=== PATIENT | female | born 1995 | race Hispanic/Latino ===

== ENCOUNTER 2017-05-03 18:39 | Observation (INO) | payer SELFPAY ==
[2017-05-03 18:50] VITALS: BMI 24.7
[2017-05-03] MEDS ORDERED: Sodium Chloride 0.9% 1,000 ML IV ONE (19:47)
[2017-05-03] MEDS ORDERED: Dexamethasone 4 mg/1 ml IVP STA (19:48)
[2017-05-03 20:01] LABS: BASO % 0.2 % (0.0-2.0); EOS # 0.2 K/uL (0.0-0.7); EOS % 1.4 % (0.0-4.0); HEMOGLOBIN 12.5 g/dL (11.0-16.0); MEAN CELL VOLUME 89.3 fL (81.0-99.0); MEAN CORPUSCULAR HEMOGLOBIN 28.8 pg (27.0-31.0); MEAN CORPUSCULAR HGB CONC 32.3 g/dL (33.0-37.0); MEAN PLATELET VOLUME 9.5 fL (7.2-11.7); NEUT # 8.4 K/uL (1.8-7.0); NEUT % 72.4 % (50.0-75.0); RBC 4.33 Mil/uL (3.80-5.20); RED CELL DISTRIBUTION WIDTH 15.6 % (11.5-14.5); WHITE BLOOD COUNT 11.6 K/uL (4.8-10.8)
[2017-05-03] MEDS ORDERED: Sodium Chloride 0.9% 1,000 ML ONE ×2 (20:01→22:48)
[2017-05-03] MEDS ORDERED: Dexamethasone 4 mg/1 ml ONE (20:01)
[2017-05-03 20:11] LABS: ALBUMIN 4.1 g/dL (3.5-5.0)
[2017-05-03 20:13] LABS: GFR AFRICAN-AMERICAN > 60; GFR NON-AFRICAN AMERICAN > 60
[2017-05-03 20:14] LABS: ALB/GLOB RATIO 1.2 (1.0-2.1); ALT/SGPT 23 U/L (9-52); AST/SGOT 15 U/L (14-36); BLOOD UREA NITROGEN 10 mg/dL (7-17); CALCIUM 9.5 mg/dl (8.6-10.4)
--- NOTE | 2017-05-03 20:21 | C.PDOC ---
"History Of Present Illness 21 y/o female presents to ED with complaints of sore throat and swelling worse for 4 days. Patient states 2 weeks ago she had sore throat and took leftover antibiotics with improvement but pain returned 4 days ago. Patient also reports pain when swallowing but denies fever, chills, cough, chest pain or any other complaints at this time. Time Seen by Provider: 05/03/17 19:19 Chief Complaint (Nursing): ENT Problem History Per: Patient History/Exam Limitations: None Onset/Duration Of Symptoms: Days Current Symptoms Are (Timing): Still Present Quality (Mouth/Throat): Swelling Past Medical History Reviewed: Historical Data, Nursing Documentation, Vital Signs Vital Signs: Last Vital Signs Temp 97.8 F 05/04/17 00:05 Pulse 58 L 05/04/17 00:05 Resp 16 05/04/17 00:05 BP 106/62 05/04/17 00:05 Pulse Ox 98 05/03/17 21:43 - Medical History PMH: Anxiety, Asthma, Bipolar Disorder, Depression Family History: States: No Known Family Hx - Social History Hx Alcohol Use: Yes Hx Substance Use: No - Immunization History Hx Tetanus Toxoid Vaccination: No Hx Influenza Vaccination: No Hx Pneumococcal Vaccination: No Review Of Systems Except As Marked, All Systems Reviewed And Found Negative. Constitutional: Negative for: Fever, Chills ENT: Positive for: Throat Pain, Throat Swelling Cardiovascular: Negative for: Chest Pain Respiratory: Negative for: Cough Gastrointestinal: Negative for: Nausea, Vomiting, Diarrhea Skin: Negative for: Rash Physical Exam - Physical Exam Appears: Non-toxic, No Acute Distress Skin: Normal Color, Warm Head: Atraumatic, Normacephalic Eye(s): bilateral: Normal Inspection, EOMI Ear(s): Bilateral: Normal Nose: Normal Oral Mucosa: Moist, No Trismus Throat: No Drooling, Other (Left peritonsillar swelling) Neck: Normal ROM, Supple Lymphatic: Adenopathy Chest: Symmetrical Cardiovascular: Rhythm Regular, No Murmur Respiratory: Normal Breath Sounds, No Rales, No Rhonchi, No Wheezing Gastrointestinal/Abdominal: Soft, No Tenderness, No Guarding, No Rebound Neurological/Psych: Oriented x3, Normal Speech ED Course And Treatment - Laboratory Results Result Diagrams: 05/03/17 19:58 05/03/17 19:58 O2 Sat by Pulse Oximetry: 99 (RA) Pulse Ox Interpretation: Normal - CT Scan/US Neck Other Rad Studies (CT/US): Interpreted By Me, Read By Radiologist CT/US Interpretation: EXAM: CT Neck With Intravenous Contrast. CLINICAL HISTORY : 21 years old, female; Signs and symptoms; Abscess, tonsil; Additional info: Peritonsillar abscess? TECHNIQUE: Axial computed tomography images of the neck with intravenous contrast. This CT. exam was performed using one or more of the following dose reduction techniques: automated. exposure control, adjustment of the mA and/or kV according to patient size, and/or use of iterative. reconstruction technique. Coronal and sagittal reformatted images were created and reviewed. CONTRAST: 100 mL of visipaque 320 administered intravenously. COMPARISON: No relevant prior studies available. FINDINGS: Nasopharynx: Unremarkable. Oropharynx: The palatine tonsils and lingual tonsils are enlarged consistent with tonsillitis. 1.3 x 1.3. cm peritonsillar abscess on the left. Hypopharynx: Unremarkable. Larynx: Unremarkable. Normal epiglottis. Trachea: Unremarkable. Retropharyngeal space: Unremarkable. Submandibular/parotid glands: Unremarkable. Glands are normal in size. Thyroid : Unremarkable. No enlarged or calcified nodules. Bones/joints: No acute fracture. Soft tissues: Unremarkable. Vasculature: No acute findings. Lymph nodes: Prominent lymph nodes in the anterior cervical and submandibular chains, more. prominent on the left. Lung apices: Unremarkable as visualized. DELORIS SMITH | Preliminary Radiology Report. CARDIAC CATH TECH (QA) DISCREPANCY? If there is a discrepancy between the preliminary and final interpretation, please notify [facility] via [email or web address]. If you do not have access to our QA portal, call our QA team at [phone]. CONFIDENTIALITY STATEMENT. This report is intended only for the use of the referring physician, and only in accordance with law, If you received this in error, call [phone]. Page 2 of 2. IMPRESSION: 1. The palatine tonsils and lingual tonsils are enlarged consistent with tonsillitis. 1.3 x 1.3 cm. peritonsillar abscess on the left. 2. Prominent lymph nodes in the anterior cervical and submandibular chains, more prominent on the. left. These are likely reactive lymph nodes. Thank you for allowing us to participate in the care of your patient. Progress Note: Case discussed with Dr. Vazquez who instructs medical admission and he will consult. Case discussed with Dr Varner, agrees upon admission. Reevaluation Time: 20:24 Reassessment Condition: Improved Disposition - Disposition Disposition: HOSPITALIZED Disposition Time: 22:00 Condition: STABLE - Clinical Impression Clinical Impression: Peritonsillar abscess - Scribe Statement The provider has reviewed the documentation as recorded by the Ronaldibdeejay Badillo All medical record entries made by the Beatriz were at my direction and personally dictated by me. I have reviewed the chart and agree that the record accurately reflects my personal performance of the history, physical exam, medical decision making, and the department course for this patient. I have also personally directed, reviewed, and agree with the discharge instructions and disposition."
[2017-05-03] MEDS ORDERED: Iodixanol 320 MG/ML 100 ML BOTTLE IV ONE (20:46)
[2017-05-03] MEDS ORDERED: Benzocaine/Menthol (Cepacol) Lozenge MT PRN (22:17)
--- NOTE | 2017-05-03 22:18 | CP.PCM.HP ---
Addendum entered and electronically signed by Leonela Aguirre DO 05/04/17 00:20 : Clindamycin 600mg Q6H Original Note: <Leonela Aguirre - Last Filed: 05/03/17 23:39> History of Present Illness - History of Present Illness History of Present Illness: Medicine Note CC: sore throat HPI: 21F with PMHx of Asthma presents to the ED for sore throat. Patient reports she started having throat pain for the past 4 days. She has pain when she swallows and has been unable to eat certain food items. She admits to odynophagia, chills, nausea, and vomiting x1 episode. Denied fever, headache, chest pain, SOB, abdominal pain, c/d, or urinary symptoms. PMHx: Asthma PSHx: Tear duct surgery Meds: Denied All: NKDA SHx: smokes 1/2 ppd/ 10 years, socially drugs, denied any illicit drug use FHx: Unremarkable Present on Admission - Present on Admission Any Indicators Present on Admission: No Review of Systems - Constitutional Constitutional: Chills. absent: Fever - EENT Eyes: absent: Change in Vision Ears: absent: Tinnitus Nose/Mouth/Throat: Dry Mouth, Odynophagia, Sore Throat, Throat Swelling, Neck Mass. absent: Change in Voice, Hoarsness, Tongue Swelling, Neck Pain - Cardiovascular Cardiovascular: absent: Chest Pain, Chest Pain at Rest - Respiratory Respiratory: absent: Dyspnea on Exertion - Gastrointestinal Gastrointestinal: absent: Abdominal Pain - Genitourinary Genitourinary: absent: Dysuria, Hematuria, Pyuria - Musculoskeletal Musculoskeletal: absent: Back Pain - Integumentary Integumentary: absent: Wounds - Neurological Neurological: absent: Weakness - Endocrine Endocrine: absent: Fatigue - Hematologic/Lymphatic Hematologic: absent: Easy Bleeding, Easy Bruising Past Patient History - Infectious Disease Hx of Infectious Diseases: None - Past Social History Smoking Status: Heavy Smoker > 10 Cigarettes Daily - PULMONARY Hx Asthma: Yes - PSYCHIATRIC Hx Anxiety: Yes Hx Bipolar Disorder: Yes Hx Depression: Yes Hx Substance Use: No - SURGICAL HISTORY Hx Surgeries: Yes Hx Eye Surgery: Yes - ANESTHESIA Hx Anesthesia: Yes Hx Anesthesia Reactions: No Meds Allergies/Adverse Reactions: Allergies Allergy/AdvReac Type Severity Reaction Status Date / Time risperidone [From Risperdal] AdvReac Intermediate RASH Verified 05/03/17 18:51 Physical Exam - Constitutional Appears: No Acute Distress - Head Exam Head Exam: NORMAL INSPECTION, NORMOCEPHALIC - Eye Exam Eye Exam: EOMI, Normal appearance, PERRL - ENT Exam ENT Exam: Mucous Membranes Dry Additional comments: Left tonsil enlarged, erythematous, no pus noted, TTP on exam - Neck Exam Neck exam: Positive for: Normal Inspection, Tenderness. Negative for: Thyromegaly - Respiratory Exam Respiratory Exam: Clear to Auscultation Bilateral, NORMAL BREATHING PATTERN. absent: Accessory Muscle Use, Wheezes - Cardiovascular Exam Cardiovascular Exam: REGULAR RHYTHM - GI/Abdominal Exam GI & Abdominal Exam: Normal Bowel Sounds, Soft - Extremities Exam Extremities exam: Positive for: normal inspection, pedal pulses present. Negative for: pedal edema, tenderness - Back Exam Back exam: NORMAL INSPECTION - Neurological Exam Neurological exam: Alert, CN II-XII Intact, Oriented x3 - Psychiatric Exam Psychiatric exam: Normal Affect, Normal Mood - Skin Skin Exam: Dry, Intact, Normal Color, Warm Results - Vital Signs Recent Vital Signs: Last Vital Signs Temp 97.5 F L 05/03/17 21:43 Pulse 79 05/03/17 21:43 Resp 18 05/03/17 21:43 BP 112/69 05/03/17 21:43 Pulse Ox 98 05/03/17 21:43 - Labs Result Diagrams: 05/03/17 19:58 05/03/17 19:58 Labs: Laboratory Results - last 24 hr 05/03/17 05/03/17 05/03/17 19:58 19:58 20:08 WBC 11.6 H RBC 4.33 Hgb 12.5 Hct 38.7 MCV 89.3 MCH 28.8 MCHC 32.3 L RDW 15.6 H Plt Count 224 MPV 9.5 Neut % (Auto) 72.4 Lymph % (Auto) 17.0 L [place] % (Auto) 9.0 Eos % (Auto) 1.4 Baso % (Auto) 0.2 Neut # 8.4 H Lymph # 2.0 [place] # 1.0 H Eos # 0.2 Baso # 0.0 Sodium 141 Potassium 3.4 L Chloride 101 Carbon Dioxide 26 Anion Gap 17 BUN 10 Creatinine 0.6 L Est GFR ( Amer) > 60 Est GFR (Non-Af Amer) > 60 Random Glucose 100 Calcium 9.5 Total Bilirubin 0.9 AST 15 ALT 23 Alkaline Phosphatase 92 Total Protein 7.4 Albumin 4.1 Globulin 3.4 Albumin/Globulin Ratio 1.2 Grp A Beta Strep Ag Negative Assessment & Plan - Assessment and Plan (Free Text) Assessment: 21F with PMHx of Asthma presents to the ED for sore throat. Patient reports she started having throat pain for the past 4 days. Plan: Peritonsillar abscess * Afebrile, leukocytosis with left shift, vitals stable * Neck CT with IV contrast: The palatine tonsils and lingual tonsils are enlarged consistent with tonsillitis. 1.3 x 1.3 cm. peritonsillar abscess on the left. 2. Prominent lymph nodes in the anterior cervical and submandibular chains, more prominent on the. left. These are likely reactive lymph nodes. Thank you for allowing us to participate in the care of your patient. * Dr. Bland consulted-help appreciated * Started on Clindamycin 300mg IVP Q6H * Tylenol PRN * Cepacol PRN * Strep -negative * F/U throat culture * NPO for possible procedure tomorrow Hx of Asthma * Duonebs PRN Prophylactic Measures * GI PPX: Protonix 40mg PO daily * DVT PPX: Heparin 5000 SC Q12H, SCDs * NPO * Zofran PRN * Tylenol PRN * Cepacol PRN DW Carla Chris DO, PGY-1 <Fabián Varner P - Last Filed: 05/05/17 06:16> Results - Vital Signs Recent Vital Signs: Last Vital Signs Temp 97.9 F 05/04/17 08:09 Pulse 52 L 05/04/17 08:09 Resp 20 05/04/17 08:09 BP 119/60 05/04/17 08:09 Pulse Ox 96 05/04/17 08:09 - Labs Result Diagrams: 05/04/17 06:27 05/04/17 06:27 Labs: Laboratory Results - last 24 hr 05/04/17 05/04/17 06:27 06:27 WBC 11.4 H RBC 4.05 Hgb 11.7 Hct 35.7 MCV 88.2 MCH 29.0 MCHC 32.9 L RDW 16.2 H Plt Count 229 MPV 9.8 Neut % (Auto) 83.0 H Lymph % (Auto) 11.9 L [place] % (Auto) 4.6 Eos % (Auto) 0.1 Baso % (Auto) 0.4 Neut # 9.4 H Lymph # 1.4 [place] # 0.5 Eos # 0.0 Baso # 0.0 Sodium 137 Potassium 3.4 L Chloride 103 Carbon Dioxide 23 Anion Gap 14 BUN 9 Creatinine 0.4 L Est GFR ( Amer) > 60 Est GFR (Non-Af Amer) > 60 Random Glucose 150 H Calcium 8.7 Total Bilirubin 0.6 AST 15 ALT 20 Alkaline Phosphatase 85 Total Protein 6.4 Albumin 3.6 Globulin 2.9 Albumin/Globulin Ratio 1.2 Attending/Attestation - Attestation I have personally seen and examined this patient.: Yes I have fully participated in the care of the patient.: Yes I have reviewed all pertinent clinical information: Yes Notes (Text): Patient had peritonsillar abscess on exam and CT finding, h/o prior recurrent episodes of tonsillitis, asthma, allergic pharyangitis, tobacco abuse. Patient started on iv decadron, iv clindamycin for possible drainage in am by ENT. Counselled about asthma, regular use of advair during allergy season may reduce episodes of tonsillitis as well, tobacco prevention, also ent out patient f/u for possible tonsillectomy.
[2017-05-03] MEDS ORDERED: Potassium Chloride 20 mEq/15 ml LIQ UD PO ONE (22:20)
[2017-05-03] MEDS ORDERED: Sodium Chloride 0.9% 1,000 ML IV SCH (22:30)
[2017-05-03] MEDS ORDERED: Albuterol-Ipratrop 3 mg / 0.5 (3 ml) UD INH PRN (22:32)
[2017-05-03] MEDS ORDERED: Potassium Chloride 20 mEq/15 ml LIQ UD ONE (22:48)
[2017-05-03] MEDS ORDERED: Clindamycin 300 MG in Sodium Chloride 0.9% 50 ML IVPB SCH (23:45)
[2017-05-03] MEDS: Clindamycin 600mg/50ml D5W 600 MG/50 ML VIAL IVPB SCH (23:45)
[2017-05-04] MEDS: Clindamycin 600mg/50ml D5W 600 MG/50 ML VIAL IVPB SCH (05:08)
[2017-05-04 06:43] LABS: BASO % 0.4 % (0.0-2.0); EOS % 0.1 % (0.0-4.0); HEMOGLOBIN 11.7 g/dL (11.0-16.0); LYMPH # 1.4 K/uL (1.0-4.3); LYMPH % 11.9 % (20.0-40.0); MEAN CELL VOLUME 88.2 fL (81.0-99.0); MEAN CORPUSCULAR HGB CONC 32.9 g/dL (33.0-37.0); MEAN PLATELET VOLUME 9.8 fL (7.2-11.7); MONO # 0.5 K/uL (0.0-0.8); MONO % 4.6 % (0.0-10.0); NEUT # 9.4 K/uL (1.8-7.0); RBC 4.05 Mil/uL (3.80-5.20); RED CELL DISTRIBUTION WIDTH 16.2 % (11.5-14.5); WHITE BLOOD COUNT 11.4 K/uL (4.8-10.8)
[2017-05-04 06:54] LABS: ALB/GLOB RATIO 1.2 (1.0-2.1); ALBUMIN 3.6 g/dL (3.5-5.0); ALT/SGPT 20 U/L (9-52); AST/SGOT 15 U/L (14-36); BLOOD UREA NITROGEN 9 mg/dL (7-17); CALCIUM 8.7 mg/dl (8.6-10.4); GFR AFRICAN-AMERICAN > 60; GFR NON-AFRICAN AMERICAN > 60
[2017-05-04] MEDS ORDERED: Lidocaine 2% w Epi 1:100,000 Inj IJ ONE ×3 (08:02→08:30)
[2017-05-04 08:10] VITALS: BP 119/60; PULSE 52; RESP 20; TEMP 97.9; O2SAT 96
--- NOTE | 2017-05-04 08:35 | CT ---
PROCEDURE: CT NECK WITH CONTRAST HISTORY: peritonsillar abscess? COMPARISON: None TECHNIQUE: CT of the neck with intravenous contrast. Coronal and sagittal reformats generated. Intravenous contrast dose: Visipaque 320-100 cc Radiation dose: DLP 297 mGy-cm This CT exam was performed using one or more of the following dose reduction techniques: Automated exposure control, adjustment of the mA and/or kV according to patient size, and/or use of iterative reconstruction technique. FINDINGS: NASOPHARYNX: Unremarkable. SUPRAHYOID NECK: There is enlargement of the left-sided palatine and lingual tonsils comes to clip the left tonsillar pillar in general which is inhomogeneous enhancement with tiny areas of diminished enhancement likely reflecting phlegmon though microabscesses are not excluded. There is no large abscess. The or pharyngeal airway is slightly narrowed at the left but remains patent throughout. INFRAHYOID NECK: Unremarkable larynx, hypopharynx, and supraglottic space. Vocal cords intact. MASS: None. GLANDS: Parotid and submandibular glands unremarkable. Normal size thyroid gland, without nodule. LYMPH NODES: Mild infrahyoid neck submandibular lymphadenopathy is appreciated including a left level IIa lymph node measuring 1.8 x 1.4 cm. CERVICAL SPINE: No fracture or focal lesion. VASCULAR STRUCTURES: Unremarkable. OTHER FINDINGS: None. IMPRESSION: Moderate tonsillitis seen at the left tonsillar pillar with inhomogeneous enhancement likely reflecting phlegmon. A large abscess is not identified, though a tiny microabscess not excluded a few mm size at the left tonsillar pillar as discussed above. Underlying neoplasm or inflammatory etiology is not excluded. Clinical correlation is advised. Imaging follow-up is available if indicated. Limited left neck lymphadenopathy
[2017-05-04] MEDS ORDERED: Potassium Chloride 20 mEq ER Tab PO ONE (09:00)
[2017-05-04] MEDS ORDERED: Saccharomyces Boulardi 250 mg Cap PO SCH ×2 (10:00)
[2017-05-04] MEDS ORDERED: Pantoprazole 40 mg EC Tab PO SCH (10:00)
--- NOTE | 2017-05-04 14:13 | CP.PCM.DIS ---
Provider - Provider Date of Admission: 05/03/17 22:13 Attending physician: Del Daniel DO Consults: Dr. Bland Time Spent in preparation of Discharge (in minutes): 45 Diagnosis - Discharge Diagnosis (1) Peritonsillar abscess Status: Acute Comment: please see summary for details Hospital Course - Lab Results Lab Results: Most Recent Lab Values WBC 11.4 K/uL (4.8-10.8) H 05/04/17 06:27 RBC 4.05 Mil/uL (3.80-5.20) 05/04/17 06:27 Hgb 11.7 g/dL (11.0-16.0) 05/04/17 06:27 Hct 35.7 % (34.0-47.0) 05/04/17 06:27 MCV 88.2 fL (81.0-99.0) 05/04/17 06:27 MCH 29.0 pg (27.0-31.0) 05/04/17 06:27 MCHC 32.9 g/dL (33.0-37.0) L 05/04/17 06:27 RDW 16.2 % (11.5-14.5) H 05/04/17 06:27 Plt Count 229 K/uL (130-400) 05/04/17 06:27 MPV 9.8 fL (7.2-11.7) 05/04/17 06:27 Neut % (Auto) 83.0 % (50.0-75.0) H 05/04/17 06:27 Lymph % (Auto) 11.9 % (20.0-40.0) L 05/04/17 06:27 [place] % (Auto) 4.6 % (0.0-10.0) 05/04/17 06:27 Eos % (Auto) 0.1 % (0.0-4.0) 05/04/17 06:27 Baso % (Auto) 0.4 % (0.0-2.0) 05/04/17 06:27 Neut # 9.4 K/uL (1.8-7.0) H 05/04/17 06:27 Lymph # 1.4 K/uL (1.0-4.3) 05/04/17 06:27 [place] # 0.5 K/uL (0.0-0.8) 05/04/17 06:27 Eos # 0.0 K/uL (0.0-0.7) 05/04/17 06:27 Baso # 0.0 K/uL (0.0-0.2) 05/04/17 06:27 Sodium 137 mmol/L (132-148) 05/04/17 06:27 Potassium 3.4 mmol/L (3.6-5.2) L 05/04/17 06:27 Chloride 103 mmol/L (98-107) 05/04/17 06:27 Carbon Dioxide 23 mmol/L (22-30) 05/04/17 06:27 Anion Gap 14 (10-20) 05/04/17 06:27 BUN 9 mg/dL (7-17) 05/04/17 06:27 Creatinine 0.4 MG/DL (0.7-1.2) L 05/04/17 06:27 Est GFR ( Amer) > 60 05/04/17 06:27 Est GFR (Non-Af Amer) > 60 05/04/17 06:27 Random Glucose 150 mg/dL (65-105) H 05/04/17 06:27 Calcium 8.7 mg/dl (8.6-10.4) 05/04/17 06:27 Total Bilirubin 0.6 mg/dL (0.2-1.3) 05/04/17 06:27 AST 15 U/L (14-36) 05/04/17 06:27 ALT 20 U/L (9-52) 05/04/17 06:27 Alkaline Phosphatase 85 U/L (38-126) 05/04/17 06:27 Total Protein 6.4 g/dL (6.3-8.3) 05/04/17 06:27 Albumin 3.6 g/dL (3.5-5.0) 05/04/17 06:27 Globulin 2.9 gm/dL (2.2-3.9) 05/04/17 06:27 Albumin/Globulin Ratio 1.2 (1.0-2.1) 05/04/17 06:27 Grp A Beta Strep Ag Negative (NEGATIVE) 05/03/17 20:08 - Hospital Course Hospital Course: "CC: "sore throat" HPI: 21F with PMHx of asthma presents to the ED for sore throat. Patient reports she started having throat pain for the past 4 days. She has pain when she swallows and has been unable to eat certain food items. She admits to odynophagia, chills, nausea, and vomiting x1 episode. Denied fever, headache, chest pain, SOB, abdominal pain, c/d, or urinary symptoms." CT with IV contrast of the neck showed moderate tonsillitis at the left tonsillar pillar with inhomogeneous enhancement likely reflecting phlegmon. A large abscess was not identified, though a tiny microabscess not excluded (a few mm as stated above), not underlying neoplasm or inflammatory etiology. There was limited left neck lymphadenopthy. Throat culture is pending; she was empirically started on Clindamycin 600mg in 50mL IVPB q6h and Cepacol 1 lozenge MT q2h prn and placed NPO for possible incision and drainage. Also started on Duonebs prn and given a nicotine patch. Her nausea was controlled using Zofran 4mg IVP q6 prn. Supplemental potassium given when blood work came back low. Patient expressed interest in discontinuing medical care and refused to sign the "against medical advice" documentation. Code Echo was called, but patient still left the premises without signing the forms. Discharge Exam - Head Exam Head Exam: NORMAL INSPECTION, NORMOCEPHALIC - Eye Exam Eye Exam: EOMI, Normal appearance, PERRL - ENT Exam ENT Exam: Mucous Membranes Moist Additional comments: erythematous tonsils - Neck Exam Neck exam: Lymphadenopathy - Respiratory Exam Respiratory Exam: Clear to PA & Lateral. absent: Rhonchi, Wheezes, Respiratory Distress, Stridor - Cardiovascular Exam Cardiovascular Exam: REGULAR RHYTHM, RRR. absent: Gallop, Rubs, Systolic Murmur - GI/Abdominal Exam GI & Abdominal Exam: Normal Bowel Sounds, Unremarkable - Extremities Exam Extremities exam: full ROM - Back Exam Back exam: NORMAL INSPECTION - Neurological Exam Neurological exam: Alert, Oriented x3 - Psychiatric Exam Psychiatric exam: Agitated, Normal Affect - Skin Skin Exam: Intact, Normal Color, Warm Discharge Plan - Follow Up Plan Condition: FAIR Disposition: AGAINST MEDICAL ADVICE
== END 2017-05-04 14:12 | disposition left against medical advice (07) ==
LOC: C.ER 18:39 → MERGE 22:13 → C.9E 22:13 → C.5T 23:21
PROVIDERS: ADMIT Internal Medicine; ATTEND Internal Medicine
DX: J36 Peritonsillar abscess (principal); J45.909 Unspecified asthma, uncomplicated; F17.210 Nicotine dependence, cigarettes, uncomplicated; R68.83 Chills (without fever); R11.2 Nausea with vomiting, unspecified; Z53.20 Procedure and treatment not carried out because of patient's decision for unspecified reasons
CPT/HCPCS: 36415; 70491; 80053; 85025; 87040; 87070; 87430; 96360; 96374; 99284; G0378; J1100; J7040; Q9967

== ENCOUNTER 2017-10-02 13:00 | Emergency (ER) | payer SELFPAY ==
[2017-10-02 13:08] VITALS: BMI 23.0
[2017-10-02 13:14] VITALS: RESP 18; O2SAT 99
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
[2017-10-02 14:35] LABS: BASO % 0.3 % (0.0-2.0); EOS # 0.2 K/uL (0.0-0.7); EOS % 1.9 % (0.0-4.0); HEMATOCRIT 34.9 % (34.0-47.0); LYMPH % 19.9 % (20.0-40.0); MEAN CELL VOLUME 88.4 fL (81.0-99.0); MEAN CORPUSCULAR HEMOGLOBIN 29.3 pg (27.0-31.0); MEAN CORPUSCULAR HGB CONC 33.2 g/dL (33.0-37.0); MEAN PLATELET VOLUME 9.8 fL (7.2-11.7); MONO # 0.8 K/uL (0.0-0.8); MONO % 7.9 % (0.0-10.0); RED CELL DISTRIBUTION WIDTH 15.9 % (11.5-14.5)
[2017-10-02 14:53] LABS: ALKALINE PHOSPHATASE 57 U/L (38-126); ALT/SGPT 34 U/L (9-52); AST/SGOT 17 U/L (14-36); BILIRUBIN,TOTAL 0.3 mg/dL (0.2-1.3); BLOOD UREA NITROGEN 8 mg/dL (7-17); CALCIUM 8.1 mg/dl (8.6-10.4); CARBON DIOXIDE 29 mmol/L (22-30); CHLORIDE 107 mmol/L (98-107); GFR AFRICAN-AMERICAN > 60; GLUCOSE,RANDOM 90 mg/dL (65-105); POTASSIUM 3.5 mmol/L (3.6-5.2); SODIUM 137 mmol/L (132-148)
[2017-10-02] MEDS ORDERED: Iodixanol 320 mg/ml 150 ml Bottle IV ONE (17:36)
--- NOTE | 2017-10-02 19:07 | CT ---
EXAM: CT Maxillofacial With Intravenous Contrast EXAM DATE/TIME: 10/02/2017 2:01 PM CLINICAL HISTORY: 22 years old, female; Injury or trauma and signs and symptoms; Fall; Initial encounter; Swelling; Orbit/periorbital; Left; Mass, lump, or swelling; Other: Left orbit; Additional info: Left sided trauma and rule out dental abscess TECHNIQUE: Axial computed tomography images of the face with intravenous contrast. All CT scans at this facility use one or more dose reduction techniques, viz.: automated exposure control; ma/kV adjustment per patient size (including targeted exams where dose is matched to indication; i.e. head); or iterative reconstruction technique. Coronal and sagittal reformatted images were created and reviewed. CONTRAST: 100 mL of visipaque 320 administered intravenously. COMPARISON: There are no prior studies for comparison. FINDINGS: Bony structures: There are no facial bone fractures. Upper cervical spine is unremarkable. Dental: There are multiple dental caries and erosions. There are erosions in the maxilla greatest about the right central and lateral incisors. There are smaller erosions about the left upper incisors. There are very small apical erosions in the right mandible. There is a large erosion about the remaining molar in the left mandible. There is inflammation and edema in the bucccal mucosal spaces bilaterally left greater than right. Hyperemia is greater on the left. There may be a small buccal mucosal space abscess, image 46 series 3. Superficial soft tissues: There is soft tissue swelling and edema in the left cheek. Deep facial spaces: Parapharyngeal spaces are symmetric. There are no deep facial masses. There is no prevertebral soft tissue swelling. Vascular: Vascular structures are unremarkable. Nodes: There is cervical adenopathy left greater than right. Orbits: Orbital contents are unremarkable. Globes are intact bilaterally. Retro-bulbar structures are symmetric bilaterally. There are no orbital fractures. Salivary glands: Parotid and submandibular glands are unremarkable. Sinuses: Frontal, ethmoid and sphenoid sinuses are unremarkable. There is minimal mucoperiosteal thickening in the right sphenoid sinus. There is mucoperiosteal thickening greatest in the base of the left maxillary sinus. Ears and mastoids Middle ears and mastoids are unremarkable Brain: No acute abnormalities are seen in visualized portion of the brain. Intracranial vascular structures enhance in the expected fashion. Tonsils and adenoids: Tonsils and adenoids are prominent. Thyroid: Thyroid is only partially imaged. Airway: There is no airway obstruction IMPRESSION: No facial bone fractures; extensive dental disease with inflammation and edema greatest in the left buccal mucosal space with possible small abscess Dental consultation advised Additional findings as described above.
[2017-10-02 19:11] VITALS: BP 110/76; PULSE 74; TEMP 98.2
== END 2017-10-02 19:45 | disposition home or self-care (01) ==
LOC: C.ER 13:00
DX: K04.7 Periapical abscess without sinus (principal); G43.909 Migraine, unspecified, not intractable, without status migrainosus; R22.0 Localized swelling, mass and lump, head
CPT/HCPCS: 70481; 80053; 84702; 85025; 99284; Q9967

== ENCOUNTER 2017-12-31 23:24 | Emergency (ER) | payer SELFPAY ==
[2017-12-31 23:24] VITALS: BMI 23.0
[2017-12-31 23:45] VITALS: BP 102/52; PULSE 78; RESP 20; TEMP 98.3; O2SAT 98
--- NOTE | 2018-01-01 00:23 | C.PDOC ---
History Of Present Illness 22 year old female presents to the ER requesting a test. Patient states she has been experiencing "signs of " but denies any complaints , pain, or vaginal bleeding. LMP was 2 weeks ago. Time Seen by Provider: 12/31/17 23:56 Chief Complaint (Nursing): Medical Clearance History Per: Patient History/Exam Limitations: no limitations Onset/Duration Of Symptoms: Days Current Symptoms Are (Timing): Still Present Recent travel outside of the [place]: No Past Medical History Reviewed: Historical Data, Nursing Documentation, Vital Signs Vital Signs: Last Vital Signs Temp 98.3 F 12/31/17 23:41 Pulse 78 12/31/17 23:41 Resp 20 12/31/17 23:41 BP 102/52 L 12/31/17 23:41 Pulse Ox 98 01/01/18 03:05 - Medical History PMH: Anxiety, Asthma, Bipolar Disorder, Depression, Migraine Family History: States: Unknown Family Hx - Social History Hx Alcohol Use: Yes Hx Substance Use: Yes (marijuana) - Immunization History Hx Tetanus Toxoid Vaccination: Yes Hx Influenza Vaccination: Yes Hx Pneumococcal Vaccination: No Review Of Systems Constitutional: Negative for: Fever, Chills Gastrointestinal: Negative for: Nausea, Vomiting, Abdominal Pain Genitourinary: Negative for: Vaginal Bleeding Physical Exam - Physical Exam Appears: Non-toxic, No Acute Distress Skin: Normal Color, Warm, Dry Head: Atraumatic, Normacephalic Eye(s): bilateral: Normal Inspection Gastrointestinal/Abdominal: Soft, No Tenderness Extremity: Normal ROM (x4) Neurological/Psych: Oriented x3, Normal Speech ED Course And Treatment O2 Sat by Pulse Oximetry: 98 (Room air) Pulse Ox Interpretation: Normal Progress Note: Patient resting comfortably in the ER with no acute complaints and not in any distress. test was negative, pt advised OB follow up Disposition Counseled Patient/Family Regarding: Diagnosis, Need For Followup - Disposition Disposition: HOME/ ROUTINE Disposition Time: 00:21 Condition: STABLE Additional Instructions: Please follow up in clinic Return to ER if worse Forms: General Discharge Instructions, [facility] (Arabic) - Clinical Impression Clinical Impression: Medical assessment, test negative - PA / WEBSITE/BLOG EDITOR / Resident Statement MD/DO has reviewed & agrees with the documentation as recorded. - Scribe Statement The provider has reviewed the documentation as recorded by the Ronaldibdeejay Scott All medical record entries made by the Scribe were at my direction and personally dictated by me. I have reviewed the chart and agree that the record accurately reflects my personal performance of the history, physical exam, medical decision making, and the department course for this patient. I have also personally directed, reviewed, and agree with the discharge instructions and disposition.
== END 2018-01-01 00:31 | disposition home or self-care (01) ==
LOC: C.ER 23:24
DX: Z32.02 Encounter for pregnancy test, result negative (principal)

== ENCOUNTER 2018-08-12 12:41 | Emergency (ER) | payer SELFPAY ==
[2018-08-12 12:47] VITALS: BMI 24.4
[2018-08-12 12:48] VITALS: BP 115/66; PULSE 86; RESP 20; TEMP 97.6; O2SAT 100
[2018-08-12] MEDS ORDERED: Albuterol-Ipratrop 3 mg / 0.5 (3 ml) UD INH STA ×2 (13:02→13:30)
[2018-08-12] MEDS ORDERED: Albuterol-Ipratrop 3 mg / 0.5 (3 ml) UD ONE ×2 (13:18→13:38)
--- NOTE | 2018-08-12 13:44 | RAD ---
Date of service: 08/12/2018 HISTORY: Cough. COMPARISON: No prior. TECHNIQUE: Chest PA and lateral FINDINGS: LUNGS: No active pulmonary disease. PLEURA: No significant pleural effusion identified. No pneumothorax apparent. CARDIOVASCULAR: No atherosclerotic calcification present Normal. OSSEOUS STRUCTURES: No significant abnormalities. VISUALIZED UPPER ABDOMEN: Normal. OTHER FINDINGS: None. IMPRESSION: No active disease.
--- NOTE | 2018-08-12 13:50 | C.PDOC ---
History Of Present Illness 23 y/o female, w/PMhx of asthma, presents to the ER complaining of cough with green phlegm and wheezing which has been present for the past 10 days. Patient states that she ran out of her inhaler. Patient reports that she has never been intubated.Denies having fever, chills, nausea, vomiting, and abdominal pain. Of note, patient uses tobacco. Time Seen by Provider: 08/12/18 12:52 Chief Complaint (Nursing): Cough, Cold, Congestion History Per: Patient History/Exam Limitations: no limitations Onset/Duration Of Symptoms: Days Current Symptoms Are (Timing): Still Present Severity: Moderate Past Medical History Reviewed: Historical Data, Nursing Documentation, Vital Signs Vital Signs: Last Vital Signs Temp 97.6 F 08/12/18 12:47 Pulse 86 08/12/18 12:47 Resp 20 08/12/18 12:47 BP 115/66 08/12/18 12:47 Pulse Ox 100 08/12/18 12:47 - Medical History PMH: Anxiety, Asthma, Bipolar Disorder, Depression, Migraine Denies: Chronic Kidney Disease Other Surgeries: Hx of surgeries Family History: States: No Known Family Hx - Social History Hx Alcohol Use: Yes Hx Substance Use: Yes (marijuana) - Immunization History Hx Tetanus Toxoid Vaccination: Yes Hx Influenza Vaccination: Yes Hx Pneumococcal Vaccination: No Review Of Systems Except As Marked, All Systems Reviewed And Found Negative. Constitutional: Negative for: Fever, Chills Cardiovascular: Negative for: Chest Pain Respiratory: Positive for: Cough, Wheezing. Negative for: Shortness of Breath Gastrointestinal: Negative for: Nausea, Vomiting, Abdominal Pain Physical Exam - Physical Exam Appears: Non-toxic, No Acute Distress Skin: Normal Color, Warm, Dry Head: Atraumatic, Normacephalic Eye(s): bilateral: Normal Inspection Ear(s): Bilateral: Normal Nose: Normal Oral Mucosa: Moist Throat: Normal, No Erythema, No Exudate Neck: Supple Chest: Symmetrical Cardiovascular: Rhythm Regular Respiratory: No Rales, No Rhonchi, Wheezing (faint expiratory wheezing), Other (no retractions) Neurological/Psych: Oriented x3, Normal Speech ED Course And Treatment O2 Sat by Pulse Oximetry: 100 (RA) Pulse Ox Interpretation: Normal Medical Decision Making Medical Decision Making: Assessment: Asthma, Bronchitis Plan: --Albuterol --Motrin PO --Zithromax PO --Prednisone PO --Nebulizer Updates: On re-evaluation, patient states that she has improvement. Patient has been discharged and instructed to follow up with PMD or clinic in 2 days. Disposition Counseled Patient/Family Regarding: Studies Performed, Diagnosis, Need For Followup, Rx Given - Disposition Referrals: [facility] [Outside] Disposition: HOME/ ROUTINE Disposition Time: 13:55 Condition: STABLE Additional Instructions: follow up with your doctor or medical clinic within 2 days call to make an appointment continue home medication as prescribed return to ER if symptoms worsens or progress Prescriptions: Albuterol HFA [Ventolin HFA 90 mcg/actuation (8 g)] 2 puff IH [id number] #1 puff Azithromycin [Zithromax] 250 mg PO DAILY #4 tab Naproxen [Naprosyn] 500 mg PO BID PRN #16 tab PRN Reason: Pain, Moderate (4-7) predniSONE [predniSONE Tab] 50 mg PO DAILY #4 tab Instructions: Acute Bronchitis, Asthma Action Plan Forms: General Discharge Instructions, [facility] (French), Work Excuse - Clinical Impression Clinical Impression: Bronchitis, Asthma - Scribe Statement The provider has reviewed the documentation as recorded by the Beatriz Nelson Provider Attestation: All medical record entries made by the Beatriz were at my direction and personally dictated by me. I have reviewed the chart and agree that the record accurately reflects my personal performance of the history, physical exam, medical decision making, and the department course for this patient. I have also personally directed, reviewed, and agree with the discharge instructions and disposition.
== END 2018-08-12 14:20 | disposition home or self-care (01) ==
LOC: C.ER 12:41
DX: J45.909 Unspecified asthma, uncomplicated (principal)

== ENCOUNTER 2018-10-01 16:42 | Emergency (ER) | payer SELFPAY ==
[2018-10-01 16:42] VITALS: BMI 24.4
[2018-10-01 16:50] VITALS: BP 110/53; PULSE 83; RESP 18; TEMP 98.3; O2SAT 97
--- NOTE | 2018-10-01 17:26 | C.PDOC ---
History Of Present Illness Patient reports two day history of pain and swelling around the right eye. No fever, pain with ocular movement, eye discharge, or vision change. States that she thought she had a facial infection, so she took someone else's penicillin x2 doses. She has a known allergy to penicillin. After taking the abx she states that she had some nausea and dizziness, but had no respiratory symptoms, rash, or any other signs of allergic reaction. She states that the nausea and dizziness have subsided. Time Seen by Provider: 10/01/18 17:05 Chief Complaint (Nursing): Abnormal Skin Integrity Past Medical History Reviewed: Historical Data, Nursing Documentation, Vital Signs Vital Signs: Last Vital Signs Temp 98.3 F 10/01/18 16:45 Pulse 83 10/01/18 16:45 Resp 18 10/01/18 16:45 BP 110/53 L 10/01/18 16:45 Pulse Ox 97 10/01/18 16:45 - Medical History PMH: Anxiety, Asthma, Bipolar Disorder, Depression, Migraine Denies: Chronic Kidney Disease Family History: States: Unknown Family Hx - Social History Hx Alcohol Use: Yes Hx Substance Use: Yes (marijuana) - Immunization History Hx Tetanus Toxoid Vaccination: Yes Hx Influenza Vaccination: Yes Hx Pneumococcal Vaccination: No Review Of Systems Except As Marked, All Systems Reviewed And Found Negative. Constitutional: Negative for: Fever, Chills ENT: Negative for: Ear Pain, Mouth Pain, Mouth Swelling, Throat Swelling Cardiovascular: Negative for: Chest Pain Respiratory: Negative for: Cough, Shortness of Breath Gastrointestinal: Positive for: Nausea Skin: Negative for: Rash Neurological: Negative for: Weakness Physical Exam - Physical Exam Appears: Well, Non-toxic, No Acute Distress Skin: Normal Color, Warm, Dry Head: Other (Mild facial swelling in R periorbital and maxillary region. No erythema, fluctuance, induration. Swollen region is tender.) Eye(s): bilateral: Normal Inspection, PERRL, EOMI, Other (No pain with EOM) Oral Mucosa: Moist Cardiovascular: Rhythm Regular Respiratory: Normal Breath Sounds, No Stridor, No Wheezing Gastrointestinal/Abdominal: Normal Exam Extremity: Normal ROM Neurological/Psych: Oriented x3 ED Course And Treatment O2 Sat by Pulse Oximetry: 97 Medical Decision Making Medical Decision Making: Explained to the patient that she should not take medication that she is allergic to. Will write Rx for clindamycin for periorbital cellulitis. Patient not displaying symptoms of orbital cellulitis at this time. Patient advised to return to the ED should symptoms worsen, especially if she develops vision change or other ocular symptoms. Disposition - Disposition Disposition: HOME/ ROUTINE Disposition Time: 17:30 Condition: STABLE Additional Instructions: DELORIS SMITH, thank you for letting us take care of you today. Your provider was Pamela Connelly MD and you were treated for FACE SWOLLEN. The emergency medical care you received today was directed at your acute symptoms. If you were prescribed any medication, please fill it and take as directed. It may take several days for your symptoms to resolve. Return to the Emergency De partment if your symptoms worsen, do not improve, or if you have any other problems. Please contact your doctor or call one of the physicians/clinics you have been referred to that are listed on the Patient Visit Information form that is included in your discharge packet. Bring any paperwork you were given at discharge with you along with any medications you are taking to your follow up visit. Our treatment cannot replace ongoing medical care by a primary care provider outside of the emergency department. Thank you for allowing the [facility] team to be part of your care today. If you had an X-Ray or CT scan: A Radiologist will review the ED reading if any change in treatment is needed we will contact you. If you had a blood, urine, or wound culture: It will take several days for the results, if any change in treatment is needed we will contact you. If you had an STI test: It will take 48 hours for the results. Please call after 1 week if you have not heard back. Prescriptions: Clindamycin [Cleocin] 300 mg PO TID #21 cap Instructions: Orbital Cellulitis (DC) Forms: [employer] (Latvian) - Clinical Impression Clinical Impression: Periorbital cellulitis of right eye
== END 2018-10-01 17:42 | disposition home or self-care (01) ==
LOC: C.ER 16:42
DX: L03.213 Periorbital cellulitis (principal); F31.9 Bipolar disorder, unspecified

== ENCOUNTER 2018-12-04 09:29 | Emergency (ER) | payer OTHER ==
[2018-12-04 09:29] VITALS: BMI 24.4
[2018-12-04 09:37] VITALS: RESP 18; O2SAT 100
--- NOTE | 2018-12-04 09:44 | C.PDOC ---
Time Seen by Provider: 12/04/18 09:40 Chief Complaint (Nursing): Abnormal Skin Integrity Past Medical History Vital Signs: Last Vital Signs Temp 99.2 F 12/04/18 09:34 Pulse 99 H 12/04/18 09:34 Resp 18 12/04/18 09:34 BP 105/55 L 12/04/18 09:34 Pulse Ox 100 12/04/18 09:34 - Medical History PMH: Anxiety, Asthma, Bipolar Disorder, Depression, Migraine Denies: Chronic Kidney Disease Family History: States: Unknown Family Hx - Social History Hx Alcohol Use: No Hx Substance Use: No - Immunization History Hx Tetanus Toxoid Vaccination: No Hx Influenza Vaccination: No Hx Pneumococcal Vaccination: No ED Course And Treatment O2 Sat by Pulse Oximetry: 100 Disposition - Disposition
[2018-12-04] MEDS ORDERED: Clindamycin 300 MG in Sodium Chloride 0.9% 50 ML IV STA (09:52)
--- NOTE | 2018-12-04 09:55 | C.PDOC ---
History Of Present Illness 23 y/o female presents to the ED complaining of new-onset right lower facial swelling, redness, and pain since this morning. Patient states I can smell the infection, I feel like it needs to be lanced. She denies any dental pain or trauma to area. No associated fever, chills, nausea, vomiting, SOB, or difficulty swallowing. Patient admits to smoking daily. Last took ibuprofen at 0500 this morning. Time Seen by Provider: 12/04/18 09:40 Chief Complaint (Nursing): Abnormal Skin Integrity History Per: Patient History/Exam Limitations: no limitations Onset/Duration Of Symptoms: Hrs Current Symptoms Are (Timing): Still Present Location Of Injury: Right: Face Quality Of Symptoms: Painful, Swollen Past Medical History Reviewed: Historical Data, Nursing Documentation, Vital Signs Vital Signs: Last Vital Signs Temp 99.2 F 12/04/18 09:34 Pulse 99 H 12/04/18 09:34 Resp 18 12/04/18 09:34 BP 105/55 L 12/04/18 09:34 Pulse Ox 100 12/04/18 09:34 - Medical History PMH: Anxiety, Asthma, Bipolar Disorder, Depression, Migraine Denies: Chronic Kidney Disease Family History: States: Unknown Family Hx - Social History Hx Tobacco Use: Yes Hx Alcohol Use: No Hx Substance Use: No - Immunization History Hx Tetanus Toxoid Vaccination: No Hx Influenza Vaccination: No Hx Pneumococcal Vaccination: No Review Of Systems Constitutional: Negative for: Fever, Chills ENT: Negative for: Ear Pain, Mouth Pain, Other (NO dental pain, or difficulty swallowing) Respiratory: Negative for: Cough, Shortness of Breath Gastrointestinal: Negative for: Nausea, Vomiting Skin: Positive for: Other (Right-sided facial swelling, pain, and redness) Neurological: Negative for: Headache, Dizziness Physical Exam - Physical Exam Appears: Non-toxic, No Acute Distress Skin: Warm, Dry, Rash (+ erythema to right lower face, skin intact) Head: Atraumatic, Normacephalic Eye(s): bilateral: Normal Inspection, PERRL, EOMI Oral Mucosa: Moist Teeth: Other (Diffuse poor dentition, extensive dark plaque) Gingiva: Swelling (Mild gum swelling to base of right lower incisors), No Bleeding Throat: No Drooling, Other (+ swelling at right lower face to jawline, no sublingual swelling, no stridor) Neck: Normal ROM, Supple Chest: Symmetrical Respiratory: No Accessory Muscle Use, Other (NARD) Extremity: Bilateral: Atraumatic, Normal Color And Temperature Pulses: Left Dorsalis Pedis: Normal, Right Dorsalis Pedis: Normal Neurological/Psych: Oriented x3 ED Course And Treatment - Laboratory Results Result Diagrams: 12/04/18 10:05 12/04/18 10:05 O2 Sat by Pulse Oximetry: 100 (RA) Pulse Ox Interpretation: Normal - CT Scan/US CT Orbits/Facials Other Rad Studies (CT/US): Read By Radiologist, Radiology Report Reviewed CT/US Interpretation: Accession No. : [id number]. Patient Name / ID : LUIS MACDONALD / [id number]. Exam Date : 12/04/2018 11:36:10 ( Approved ). Study Comment : Sex / Age : F / 23Y. Creator : Bonnie Madera. Dictator : Raymond Steele MD. Feed Mill Supervisor : Care Nurse Rn : Raymond Steele MD. Approver2 : Report Date : 12/04/2018 11:46:25. My Comment : . Date of service: 12/04/2018. PROCEDURE: CT MAXILLOFACIAL BONES WITH CONTRAST. HISTORY: r lower facial swell ro abscess. COMPARISON: None. Comparison is made with the previous study dated 10/02/2017. TECHNIQUE: Contiguous axial CT images of the maxillofacial bones were obtained following administration of IV contrast. Coronal and sagittal reformats were generated. Intravenous contrast Dose: Radiation dose: Total exam DLP = 803.77 mGy-cm. This CT exam was performed using one or more of the following dose reduction techniques: Automated exposure control, adjustment of the mA and/or kV according to patient size, and/or use of iterative reconstruction technique. Intravenous contrast dose: 100 mL of Visipaque 320 intravenously. FINDINGS: NASAL BONES: Unremarkable. ORBITS: Unremarkable. PARANASAL SINUSES/ MASTOIDS: There is almost complete opacification of the left maxillary sinus. There is mild mucosal thickening in the right maxillary sinus. Gyyg-vs-[id number] mucosal thickening of the left ethmoid noted. There is almost complete opacification of the left frontal sinus. Findings suggestive of sinusitis. MAXILLA: The oval increase in the size of the cystic formation at the anterior aspect of the maxilla to the right of the midline which contains the root of the right maxillary central and lateral incisor. There are also multiple of lucencies around the maxillary teeth suggestive of periodontal abscesses. MANDIBLE/ TEMPOROMANDIBULAR JOINTS: There are multiple periodontal abscesses also noted in the maxillary teeth. There is fluid collection noted adjacent to the right anterior aspect of the mandible measures 2.4 centimeter in the AP diameter and 0.4 centimeter in thickness suspicious for abscess formation likely due to periodontal infection. There is adjacent moderate soft tissue swelling in the right maxillary region. SKULL BASE: Unremarkable. TEMPORAL BONES: Middle ears and mastoid grossly unremarkable. OTHER FINDINGS: None. IMPRESSION: Almost complete opacification of the left maxillary and left frontal sinuses and [id number] mucosal thickening in the ethmoid sinuses suggestive of sinusitis. Multiple periodontal abscesses. 2.4 x 0.4 centimeter fluid collection adjacent to the right anterior mandible suspicious for abscess formation likely due to adjacent periodontal infection. Progress - Re-Evaluation Re-evaluation Note: 12/04/18 12:19 EXAM [facility], NARD USING CELLPHONE WO APPARENT DIFF. D/W [facility] [place] [facility]EPTS FOR ER TRANSFER. PT ADVISED NEED TO ARRANGE TRANSPORT HOME AFTER EVAL 12/04/18 12:[address] [facility] ER - Data Reviewed Data Reviewed: Lab, Diagnostic imaging Medical Decision Making Medical Decision Making: Impression: Facial swelling Initial Plan: - POC urine preg - CT Orbits/Facials w/ contrast - BMP - CBC - 30 mg IV Toradol - 300 mg IV Cleocin in NS Patient advised of the possible need for transfer for OMFS pending CT results. She verbalizes understanding. CT reviewed, shows multiple periodontal abscesses with a 2.4 x 0.4 centimeter fluid collection adjacent to the right anterior mandible suspicious for abscess formation. 12:15 Paged [facility] transfer center for OMFS transfer Disposition Counseled Patient/Family Regarding: Studies Performed, Diagnosis - Disposition Disposition: Trans to Other Acute Care Hosp Disposition Time: 12:20 Condition: STABLE Forms: [facility] (Thai) - Clinical Impression Clinical Impression: Acute periodontal abscess - Scribe Statement The provider has reviewed the documentation as recorded by the Beatriz Reynolds Provider Attestation: All medical record entries made by the Beatriz were at my direction and personally dictated by me. I have reviewed the chart and agree that the record accurately reflects my personal performance of the history, physical exam, medical decision making, and the department course for this patient. I have also personally directed, reviewed, and agree with the discharge instructions and disposition.
[2018-12-04 10:22] LABS: BASO % 0.1 % (0.0-2.0); EOS % 0.1 % (0.0-4.0); HEMOGLOBIN 13.4 g/dL (11.0-16.0); LYMPH # 0.2 K/uL (1.0-4.3); LYMPH % 2.1 % (20.0-40.0); MEAN CORPUSCULAR HEMOGLOBIN 29.4 pg (27.0-31.0); MEAN CORPUSCULAR HGB CONC 32.3 g/dL (33.0-37.0); MEAN PLATELET VOLUME 9.8 fL (7.2-11.7); MONO # 0.3 K/uL (0.0-0.8); NEUT # 10.6 K/uL (1.8-7.0); NEUT % 94.7 % (50.0-75.0); PLATELET COUNT 167 K/uL (130-400); RBC 4.57 Mil/uL (3.80-5.20); RED CELL DISTRIBUTION WIDTH 16.3 % (11.5-14.5); WHITE BLOOD COUNT 11.2 K/uL (4.8-10.8)
[2018-12-04 10:45] LABS: BLOOD UREA NITROGEN 14 mg/dL (7-17); CALCIUM 9.4 mg/dl (8.6-10.4); GFR NON-AFRICAN AMERICAN > 60
[2018-12-04 10:49] LABS: LYMPHOCYTE 2 % (20-40); MONOCYTE 2 % (0-10); NEUTROPHIL 96 % (50-75); PLATELET ESTIMATE NORMAL (NORMAL); TOTAL CELLS COUNTED 100
[2018-12-04] MEDS ORDERED: Iodixanol 320 MG/ML 100 ML BOTTLE IV ONE (11:26)
--- NOTE | 2018-12-04 12:11 | CT ---
Date of service: 12/04/2018 PROCEDURE: CT MAXILLOFACIAL BONES WITH CONTRAST HISTORY: r lower facial swell ro abscess COMPARISON: None. Comparison is made with the previous study dated 10/02/2017 TECHNIQUE: Contiguous axial CT images of the maxillofacial bones were obtained following administration of IV contrast. Coronal and sagittal reformats were generated. Intravenous contrast Dose: Radiation dose: Total exam DLP = 803.77 mGy-cm. This CT exam was performed using one or more of the following dose reduction techniques: Automated exposure control, adjustment of the mA and/or kV according to patient size, and/or use of iterative reconstruction technique. Intravenous contrast dose: 100 mL of Visipaque 320 intravenously. FINDINGS: NASAL BONES: Unremarkable. ORBITS: Unremarkable. PARANASAL SINUSES/ MASTOIDS: There is almost complete opacification of the left maxillary sinus. There is mild mucosal thickening in the right maxillary sinus. [id number] mucosal thickening of the left ethmoid noted. There is almost complete opacification of the left frontal sinus. Findings suggestive of sinusitis. MAXILLA: The oval increase in the size of the cystic formation at the anterior aspect of the maxilla to the right of the midline which contains the root of the right maxillary central and lateral incisor. There are also multiple of lucencies around the maxillary teeth suggestive of periodontal abscesses MANDIBLE/ TEMPOROMANDIBULAR JOINTS: There are multiple periodontal abscesses also noted in the maxillary teeth. There is fluid collection noted adjacent to the right anterior aspect of the mandible measures 2.4 centimeter in the AP diameter and 0.4 centimeter in thickness suspicious for abscess formation likely due to periodontal infection. There is adjacent moderate soft tissue swelling in the right maxillary region. SKULL BASE: Unremarkable. TEMPORAL BONES: Middle ears and mastoid grossly unremarkable. OTHER FINDINGS: None. IMPRESSION: Almost complete opacification of the left maxillary and left frontal sinuses and [id number] mucosal thickening in the ethmoid sinuses suggestive of sinusitis. Multiple periodontal abscesses. 2.4 x 0.4 centimeter fluid collection adjacent to the right anterior mandible suspicious for abscess formation likely due to adjacent periodontal infection.
[2018-12-04 13:04] VITALS: BP 111/82; PULSE 81; TEMP 98.4
== END 2018-12-04 13:12 | disposition short-term general hospital (02) ==
LOC: C.ER 09:29
DX: K05.219 Aggressive periodontitis, localized, unspecified severity (principal)
CPT/HCPCS: 70481; 80048; 81025; 85025; 96365; 96375; 99283; J1885; Q9967